=== PATIENT | female | born 1955 | race Caucasian/White ===

== ENCOUNTER 2017-05-24 06:20 | Day surgery (SDC) | payer BC ==
[~2017-05-24] VITALS: Ht 170.2 cm; Wt 64.0 kg
[~2017-05-24 06:20] MED LIST: ASPIRIN325 M3 PO; CALCIUM WITH M1 EACH; CLARITIN10 M6 PO; COMPETE1 EACH PO; LEVOXYL100 MC2 PO; LEVOXYL75 MC1 PO; LIPITOR80 M1 PO; NORCO 5-325 TA1 EACH PO; TYLENOL EXTRA500 M1 PO; VITAMIN D2000 UNIT PO; XANAX0.5 M1 PO; ZINC50 M4 PO
[2017-05-24 06:57] LABS: BASO ABSOLUTE COUNT 0.1 tho/cmm (0.0-0.2); EOS % 6.5 % (0-7); EOSINOPHIL ABSOLUTE COUNT 0.3 tho/cmm (0.0-0.7); HCT-HEMATOCRIT 42.8 % (34.0-49.0); HGB-HEMOGLOBIN 14.7 gm/dl (12.0-15.5); LYMPH % 27.7 % (20-45); LYMPH ABSOLUTE COUNT 1.5 tho/cmm (0.8-4.5); MCH (MEAN CORPUSCULAR HGB) 30.6 pg (28.0-32.0); MCHC MEAN CORPUSCULAR HGB CONC 34.3 % (32.0-36.0); MCV (MEAN CELL VOLUME) 89.2 fl (82.0-96.0); MEAN PLATELET VOLUME 11.2 cmc (9.4-12.4); MONO % 13.2 % (0-12); MONOCYTE ABSOLUTE COUNT 0.7 tho/cmm (0.0-1.2); NEUTROPHIL ABSOLUTE COUNT 2.7 tho/cmm (1.6-8.0); NEUTROPHIL-AUTOMATED 2.7 tho/cmm (1.6-8.0); NEUTROPHILS % 51.6 % (40-80); PLATELET COUNT 245 tho/cmm (150-450); RED CELL DISTRIBUTION WIDTH 13.1 % (12.4-16.4); WHITE BLOOD COUNT 5.2 tho/cmm (4.0-10.0)
[2017-05-24 07:03] LABS: PROTHROMBIN TIME 11.2 SECONDS (9.0-13.6)
== END 2017-05-24 10:00 ==
LOC: SHSB 06:20 → US 06:20
PROVIDERS: Radiology Diagnostic Radiology
PROC: 0W9B3ZZ Drainage of Left Pleural Cavity, Percutaneous Approach (ICD-10-PCS; principal; 2017-05-24)
DX: S27.2XXA Traumatic hemopneumothorax, initial encounter (principal); E03.9 Hypothyroidism, unspecified; E78.5 Hyperlipidemia, unspecified; F41.9 Anxiety disorder, unspecified; Z88.8 Allergy status to other drugs, medicaments and biological substances; Z86.73 Personal history of transient ischemic attack (TIA), and cerebral infarction without residual deficits; Z79.899 Other long term (current) drug therapy; Z98.890 Other specified postprocedural states; W19.XXXA Unspecified fall, initial encounter
CPT/HCPCS: J3010; J7030